=== PATIENT | female | born 1975 | race African-American/Black ===

== ENCOUNTER → 2016-10-07 | Outpatient (CLI) | payer BC ==
[~2016-10-07] MED LIST: DULA10IN SQ; FERRCAP6 PO; FOLICAP PO; OMEP40CA2 PO; ROSU5 PO
== END ==
LOC: CPRE 11:55
PROVIDERS: ATTEND Obstetrics & Gynecology
DX: Z01.812 Encounter for preprocedural laboratory examination (principal); R10.2 Pelvic and perineal pain; N92.0 Excessive and frequent menstruation with regular cycle

== ENCOUNTER → 2016-10-15 | Day surgery (SDC) | payer BC ==
[~2016-10-15] VITALS: Ht 167.6 cm; Wt 129.3 kg
[~2016-10-15] MED LIST changes: +*morphine SULFATE 8 MG/ML PERIprocedure ONLY ONE; +ACETAMINOPHEN 1000 MG/100 ML VIAL IV ONE; +APREPITANT 40 MG CAP ONE; +APREPITANT 40 MG CAP PO ONE; +BUPIVACAINE HCL PF 0.25% 30 ML VIAL ONE; +DEXAMETHASONE SOD PHOS 4 MG/ML VIAL ONE; +DO NOT ADM ANY ANTICOAGULANT DRUGS XX PRN; +FAMOTIDINE 20 MG/2 ML VIAL ONE; +HYDROmorphone HCL PF 1 MG/ML VIAL IVP PRN; +IBUPROFEN 600 MG TAB PO PRN; +INSULIN HUMAN REGULAR 1,000 UNITS/10 ML VIAL SQ PRN; +KETOROLAC TROMETHAMINE 30 MG/ML (IVP) VIAL IVP PRN; +KETOROLAC TROMETHAMINE 30 MG/ML (IVP) VIAL ONE; +LACTATED RINGER'S 1000 ML INJ 1,000 ML IV SCH; +LACTATED RINGER'S 1000 ML IV SCH; +LORazepam 0.5 MG TAB PO PRN; +METOPROLOL TARTRATE 25 MG TAB PO PRN; +MIDAZOLAM HCL 2 MG/2 ML VIAL ONE; +MORPHINE SULFATE 8 MG/ML INJ ONE; +ONDANSETRON HCL 4 MG/2 ML VIAL IV PUSH ONE; +ONDANSETRON HCL 4 MG/2 ML VIAL IVP PRN; +PROMETHAZINE INJ 25 MG/ML VIAL IM PRN; +PROPOFOL 200 MG/20 ML AMP IV ONE; +SODIUM CHLORID 0.9% 500 ML IV SCH; +SODIUM CHLORIDE 0.9% FLUSH 5 ML FLUSH FLUSH PRN; +SODIUM CHLORIDE 0.9% FLUSH 5 ML FLUSH FLUSH SCH; +ceFAZolin 2 GM PREMIX 50 ML IV SCH; +ceFAZolin 2 GM PREMIX 50 ML ONE; +ceFAZolin INJ 1,000 MG VIAL ONE; +diphenhydrAMINE HCL 25 MG CAP PO PRN; +ePHEDrine/NS 25 MG/5 ML SYR IV ONE; +fentaNYL CITRATE 250 MCG/5 ML AMP ONE; +oxyCODONE/ACETAMINOPHEN 5 MG/325 MG TAB PO PRN
[2016-10-15 06:25] VITALS: BP 146/77; PULSE 82; RESP 18; TEMP 98.4; O2SAT 99
--- NOTE | 2016-10-15 10:30 | MP ---
cc: MICHAEL ROUSE M.D. CHRYSTAL SIFUENTES DATE OF SURGERY 10/15/2016 PREOPERATIVE DIAGNOSIS Patient with a history of menorrhagia, symptomatic anemia, left-sided hydrosalpinx PROCEDURE Diagnostic laparoscopy, diagnostic hysteroscopy with dilatation and curettage and endometrial ablation with the NovaSure device. POSTOPERATIVE DIAGNOSIS Diagnostic laparoscopy, diagnostic hysteroscopy with dilatation and curettage and endometrial ablation with the NovaSure device. The patient had bilateral hydrosalpinx, normal ovaries, significant adhesions involving the fallopian tubes to the pelvis significant or indicative of pelvic inflammatory disease and pelvic adhesive disease. The endometrial cavity was symmetrical. There was no focal abnormality. The uterine measurements were 9 cm in length and 3 cm in width. INDICATIONS FOR THE PROCEDURE Patient with a known history of hydrosalpinx, discomfort, pelvic pain, menorrhagia with anemia. The patient was counseled as to the options of diagnostic hysteroscopy, possible salpingectomy and hysteroscopy with endometrial ablation were discussed. Consent was signed. The patient received Ancef 2 grams prophylactically prior to the procedure. DESCRIPTION OF PROCEDURE The patient was taken to the operating room in stable condition, underwent general anesthesia with endotracheal the patient. She was carefully positioned in dorsolithotomy position using Juan R stirrups on her extremities. She had appropriate padding when positioned. She had sequential's placed on all extremities for VTE prophylaxis. She was prepped and draped. A time-out was conducted, agreed by all present in the room. The patient has a red Polanco catheter used to drain the bladder of about 30 cc of clear urine. A bivalve speculum was used to examine the cervix which was midline, normal. Uterine sound was placed to about 9 centimeters. The cervix was then dilated to accommodate a HUMI manipulator. The retractor was removed. Gloves were changed. The abdomen was examined. The patient was morbidly obese. Placement of the umbilical port initially was unsuccessful due to visualization. The Veress needle was then selected, placed in the left upper quadrant with entry into the perineal cavity. Insufflation of CO2 was conducted at low pressure. Once the pneumoperitoneum was established, reentry into the umbilical incision site into the peritoneal cavity was accomplished without difficulty. The patient was then placed in Trendelenburg positioning. All trocar sites used a 5 mm disposable trocar. A suprapubic port was then placed under direct vision for manipulation and then a right lateral port was placed. Examination of the pelvis revealed significant adhesions involving the fallopian tubes, mild bilateral hydrosalpinx were noted. Both ovaries were normal size and shape. There were adhesions involving the cul-de-sac and dense adhesions involving the fallopian tubes prohibited drainage. The peritoneal surfaces were smooth. The ovaries visualized. No surface or focal findings consistent with neoplasm. After completion of the laparoscopic portion of the procedure, confirmation of hemostasis from all trocar sites. The upper quadrants were normal. There was no active bleeding incurred. The bowel, liver edge and gallbladder appeared normal. Decompression of the pneumoperitoneum was accomplished followed by closure of the incisions with a subcuticular stitch of 4-0 Monocryl with Steri-Strips and Band-Aids placed over the incisions. Attention was then redirected to the uterus where the bivalve retractor was reinserted. Examination of the cervix after removal of the HUMI was intact. The 5 mm hysteroscope was used to examine the endometrial cavity which was symmetrical. No focal mass was noted. This was followed by curettage of the endometrial surface and tissues then sent in formalin. Endometrial ablation was then conducted using a NovaSure device. The generator measured a wattage of 107 almonte and complete electrodesiccation was accomplished of the cavity. Reinsertion of the 5 mm scope using normal saline was used to examine the cavity which demonstrated good result with electrodesiccation of the entire cavity. No perforation. No active bleeding. After completion of the case, final count was correct. The patient was stable. She was taken to recovery room on room air. MD LONDON Nice/MARIA DEL CARMEN /10:02 AM /10:21 AM
[2016-10-15 12:10] VITALS: BP 139/86; PULSE 75; RESP 16; TEMP 98; O2SAT 96
== END | disposition home or self-care (01) ==
LOC: HSDC 05:43
PROVIDERS: ATTEND Obstetrics & Gynecology
DX: N92.0 Excessive and frequent menstruation with regular cycle (principal); D64.9 Anemia, unspecified; N70.11 Chronic salpingitis; E66.01 Morbid (severe) obesity due to excess calories; Z68.42 Body mass index [BMI] 45.0-49.9, adult
CPT/HCPCS: 00952; 58563; 86850; 86900; 86901; 88305; J0131; J0690; J1100; J1885; J2250; J2270; J2405; J3010; J7120; J8501

== ENCOUNTER → 2017-12-17 | Outpatient (CLI) | payer BC ==
[~2017-12-17] MED LIST changes: -*morphine SULFATE 8 MG/ML PERIprocedure ONLY ONE; -ACETAMINOPHEN 1000 MG/100 ML VIAL IV ONE; +AMLO5TAB2 PO; -APREPITANT 40 MG CAP ONE; -APREPITANT 40 MG CAP PO ONE; -BUPIVACAINE HCL PF 0.25% 30 ML VIAL ONE; -DEXAMETHASONE SOD PHOS 4 MG/ML VIAL ONE; -DO NOT ADM ANY ANTICOAGULANT DRUGS XX PRN; -FAMOTIDINE 20 MG/2 ML VIAL ONE; -HYDROmorphone HCL PF 1 MG/ML VIAL IVP PRN; -IBUPROFEN 600 MG TAB PO PRN; -INSULIN HUMAN REGULAR 1,000 UNITS/10 ML VIAL SQ PRN; -KETOROLAC TROMETHAMINE 30 MG/ML (IVP) VIAL IVP PRN; -KETOROLAC TROMETHAMINE 30 MG/ML (IVP) VIAL ONE; -LACTATED RINGER'S 1000 ML INJ 1,000 ML IV SCH; -LACTATED RINGER'S 1000 ML IV SCH; -LORazepam 0.5 MG TAB PO PRN; -METOPROLOL TARTRATE 25 MG TAB PO PRN; -MIDAZOLAM HCL 2 MG/2 ML VIAL ONE; -MORPHINE SULFATE 8 MG/ML INJ ONE; -ONDANSETRON HCL 4 MG/2 ML VIAL IV PUSH ONE; -ONDANSETRON HCL 4 MG/2 ML VIAL IVP PRN; -PROMETHAZINE INJ 25 MG/ML VIAL IM PRN; -PROPOFOL 200 MG/20 ML AMP IV ONE; -SODIUM CHLORID 0.9% 500 ML IV SCH; -SODIUM CHLORIDE 0.9% FLUSH 5 ML FLUSH FLUSH PRN; -SODIUM CHLORIDE 0.9% FLUSH 5 ML FLUSH FLUSH SCH; +VALS1TAB65 PO; -ceFAZolin 2 GM PREMIX 50 ML IV SCH; -ceFAZolin 2 GM PREMIX 50 ML ONE; -ceFAZolin INJ 1,000 MG VIAL ONE; -diphenhydrAMINE HCL 25 MG CAP PO PRN; -ePHEDrine/NS 25 MG/5 ML SYR IV ONE; -fentaNYL CITRATE 250 MCG/5 ML AMP ONE; -oxyCODONE/ACETAMINOPHEN 5 MG/325 MG TAB PO PRN
== END ==
LOC: CPRE 08:44
PROVIDERS: ATTEND Obstetrics & Gynecology
DX: N83.201 Unspecified ovarian cyst, right side (principal)

== ENCOUNTER → 2017-12-23 | Day surgery (SDC) | payer BC ==
[~2017-12-23] VITALS: Ht 167.6 cm; Wt 132.9 kg
[~2017-12-23] MED LIST changes: +*HYDROmorphone PF 0.5 MG/0.5 ML PERIprocedure ONLY ONE; +APREPITANT 40 MG CAP PO PRN; +BUPIVACAINE HCL PF 0.25% 30 ML VIAL ONE; +CHLORHEXIDINE GLUCONATE 2 % 1 PACK (2 CLOTHS) TOPICAL PRN; +DEXAMETHASONE SOD PHOS 4 MG/ML VIAL IV ONE; +DO NOT ADM ANY ANTICOAGULANT DRUGS PRN; -DULA10IN SQ; -FERRCAP6 PO; +GLYCOPYRROLATE 1 MG/5 ML SYRINGE IV PUSH ONE; +HYDROmorphone HCL PF 0.5 MG/0.5 ML SYRINGE IV PUSH PRN; +IBUPROFEN 600 MG TAB PO PRN; +KETOROLAC TROMETHAMINE 30 MG/ML (IVP) VIAL IVP PRN; +LACTATED RINGER'S 1000 ML INJ 1,000 ML IV SCH; +LACTATED RINGER'S 1000 ML IV PRN; +LIDOCAINE HCL 1% PF 5 ML SYRINGE OTHER ONE; +LORazepam 0.5 MG TAB PO PRN; +METOPROLOL TARTRATE 25 MG TAB PO PRN; +MIDAZOLAM HCL 2 MG/2 ML VIAL ONE; +MORPHINE SULFATE 8 MG/ML INJ ONE; +NEOSTIGMINE 5 MG/5 ML SYRINGE IV PUSH ONE; +ONDANSETRON HCL 4 MG/2 ML VIAL IV ONE; +ONDANSETRON HCL 4 MG/2 ML VIAL IVP PRN; +PHENYLEPH/NS 1000 MCG/10 ML SYR IV ONE; +PHENYLEPHRINE HCL 10 MG/ML VIAL IV ONE; +POVIDONE IODINE 5% (ANTISEPSIS KIT) 4 APPLICATIONS EACH NARE PRN; +PROPOFOL 200 MG/20 ML AMP IV ONE; +ROCURONIUM INJ 50 MG/5 ML SYRINGE IV PUSH ONE; +SODIUM CHLORID 0.9% 500 ML IV PRN; +SODIUM CHLORIDE 0.9% FLUSH 10 ML FLUSH IV FLUSH PRN; +SODIUM CHLORIDE 0.9% FLUSH 10 ML FLUSH IV FLUSH SCH; +ceFAZolin 2 GM/DEX PREMIX 50 ML IV SCH; +diphenhydrAMINE HCL 25 MG CAP PO PRN; +ePHEDrine/NS 25 MG/5 ML SYRINGE IV ONE; +oxyCODONE/ACETAMINOPHEN 5 MG/325 MG TAB PO PRN
--- NOTE | 2017-12-23 10:30 | MP ---
cc: Gonzalo Rm MD Yung Jarrett DATE OF OPERATION: 12/23/2017 PREOPERATIVE DIAGNOSIS: Patient with right-sided adnexal mass/cyst with prior history of hydrosalpinx. PROCEDURE: Exam under anesthesia, diagnostic laparoscopy, lysis of adhesions, right salpingectomy. POSTOPERATIVE DIAGNOSIS: Patient with right-sided adnexal mass/cyst with prior history of hydrosalpinx, right hydrosalpinx with pelvic adhesions. SURGEON: Gonzalo Rm MD ANESTHESIA: General with endotracheal intubation. ESTIMATED BLOOD LOSS: 50 mL DRAINS: None. OPERATIVE FINDINGS: The patient had extensive adhesive disease involving the fallopian tubes and ovaries. The right fallopian tube was markedly distended and scarred with adhesions to the pelvic sidewall. The right ovary was normal size and shape as was the left ovary. The patient was examined. PROCEDURE: She underwent general anesthesia with endotracheal intubation. She was then carefully positioned in dorsal lithotomy position using Juan R stirrups on the lower extremities. She had sequentials placed on lower extremities for VTE prophylaxis. After she was prepped and draped timeout was conducted and agreed by all present in the room. Exam revealed a markedly obese abdomen. The cervix was easily visualized with [place] retractor and simple sponge stick was placed in the vaginal vault for manipulation of the uterus during the procedure. There were no abnormalities visible on the external genitalia or cervix. Gloves were changed. The abdomen was examined. Again, the patient was morbidly obese. The umbilical port site was cleaned and then injection of about 2 mL of 0.25% plain Marcaine allowing a small incision to be made deep within the umbilicus and then the Veress needle was inserted into the peritoneal cavity with direct entry. Insufflation at low pressure was conducted. Once the pneumoperitoneum was obtained, a 5 mm trocar was inserted into the peritoneal cavity without complication. Accessory ports were placed using the 12 mm port suprapubically and a 5 mm port on the right flank. These again were placed under direct vision. Dissection initiated by defining the adjacent structures. The adhesions involving the right fallopian tube were significant and dense and they were complicated by involving the cul-de-sac, posterior uterine wall and the right pelvic sidewall. Decompression of the hydrosalpinx was required. This was done through the qa tester. The fallopian tube was then dissected away from the ovary and its mesentery and the adhesions of the cul-de-sac. Once the tube was removed, it was retrieved through the 12 mm trocar and sent as a permanent section. Irrigation of the pelvis was conducted. There was no active bleeding or hematoma. The ureter was visualized and well out of the operative field peristalsing normally. Raw surface area of the cul-de-sac was then covered with Surgicel for hemostatic control. Observation of pressure revealed no active bleeding. The 12 mm port site was then closed with a crossbow technique with a #1 Vicryl suture with good result. Once this was complete, observation of pressure revealed no active bleeding. The remaining trocars were removed intact, decompressing the pneumoperitoneum and then closing the skin incisions with a subcuticular suture of 4-0 Monocryl. Dermabond was used to close the umbilical port site. At the completion of the case, final counts were correct. The patient was stable. She was taken to the recovery room on room air. ADDENDUM: The patient had an accessory port in addition placed on the left flank using a 5 mm trocar under direct vision and this was closed in the same fashion. Gonzalo Rm MD SJEhsan/TL , 09:57 AM , 10:28 AM
[2017-12-23 12:47] VITALS: BP 101/52; PULSE 59; RESP 18; TEMP 97.5; O2SAT 92
== END | disposition home or self-care (01) ==
LOC: HSDC 06:06
PROVIDERS: ATTEND Obstetrics & Gynecology
DX: N70.11 Chronic salpingitis (principal); N73.6 Female pelvic peritoneal adhesions (postinfective)
CPT/HCPCS: 00840; 58661; 88305; J0690; J1100; J1170; J2250; J2270; J2370; J2405; J2710; J3010; J7120; J8501